=== PATIENT | female | born 1935 | race Caucasian/White ===

== ENCOUNTER → 2020-01-25 | Outpatient (CLI) | payer MEDICARE, OTHER ==
[~2020-01-25] MED LIST: ASPI-496 PO; BIOT800T PO; CALC-112 PO; DABI150C PO; DRON400T PO; HYDR-3237 PO; LATANOPROST; LEVO25TA4 PO; LEVO50TA5 PO; MULT-26 PO; TIMO5DRO28 OP; VITA1TAB3 PO
== END | disposition home or self-care (01) ==
LOC: CFH 10:51
PROVIDERS: ATTEND Internal Medicine Cardiovascular Disease
DX: I08.3 Combined rheumatic disorders of mitral, aortic and tricuspid valves (principal); I31.3 Pericardial effusion (noninflammatory); I10 Essential (primary) hypertension; I48.92 Unspecified atrial flutter; Z95.0 Presence of cardiac pacemaker
CPT/HCPCS: 93306